=== PATIENT | female | born 1960 | race Caucasian/White ===

== ENCOUNTER → 2016-10-04 | Day surgery (SDC) | payer BC ==
[~2016-10-04] MED LIST: BUPIVACAINE HCL PF 0.75% 30 ML VIAL ONE; CLINDAMYCIN PHOS 600 MG/4 ML VIAL ONE; LACTATED RINGER'S 1000 ML INJ 1,000 ML ONE; LIDOCAINE 1.5%/EPINEPHrine 1:200,000 PF SOLN 30 ML AMP ONE; LOSA50TA PO; METO50TA PO; MIDAZOLAM HCL 5 MG/ML VIAL (1 ML) ONE; MONT10TA2 PO; PROPOFOL 500 MG/50 ML BTL IV ONE; PROT40TA PO; SODIUM CHLORIDE 0.9% SOLN 100 ML BAG IV ONE
--- NOTE | 2016-10-05 07:05 | MP ---
cc: HECTOR SIMPSON DATE OF SURGERY 10/04/2016 PREOPERATIVE DIAGNOSIS Left shoulder impingement syndrome. POSTOPERATIVE DIAGNOSIS Left shoulder high-grade (80%) partial-thickness rotator cuff tear of the supraspinatus tendon, impingement, SURGEON Hector Simpson MD DEPUTY DIRECTOR OF PUBLIC WORKS JASON Santos The surgical procedure was assisted by my Advanced Registered Nurse Practitioner. My WATER METER INSTALLER presence was necessary throughout this case for the manipulation and positioning of the surgical extremity. My WATER METER INSTALLER was assisting me throughout the duration of this procedure. The skill set of an Advance Registered Nurse Practitioner was medically necessary to complete this procedure. During the surgical case, the surgical first assistant was working at the back table and the Advance Registered Nurse Practitioner was directly assisting me. PROCEDURE Left shoulder arthroscopic subacromial decompression and pressure acromioplasty with arthroscopic rotator cuff repair. ANESTHESIA Interscalene block and general PROCEDURE The patient received regional anesthesia. The patient was brought back to the operative theater. General anesthesia was administered. She was placed into a lateral decubitus position with an axillary roll and a well-padded down leg. She received intravenous clindamycin. The left upper was placed into 10 pounds of in-line traction and then prepped and draped in the usual sterile fashion. We started with a standard posterior portal for the diagnostic arthroscopy. The glenohumeral joint in general was intact without significant general changes, although we did find one small area of focal chondromalacia by the superior anterior aspect which was grade 2 in nature and very rounded and appeared to be chronic with no unstable edges. This happened to be right next to a partial thickness rotator cuff tear that we identified with a flap of the undersurface rotator cuff which was a very unstable. We found no loose bodies in the axillary pouch. The subscapularis tendon was intact. The biceps tendon was intact although there was quite a bit of synovitis around the superior labrum. There was a little bit of fraying of the superior labrum and the posterior superior labrum which we did debride with an oscillating shaver. There was no instability of the biceps tendon attachment site itself. We turned our attention back to the rotator cuff. We debrided this and the tearing encompassed about 50% of the width of the supraspinatus tendon. It was essentially going from just about the anterior interval region posterior and then at least from the undersurface there appeared to be at least 50% of the rotator cuff that was part of this tear which we then debrided with the oscillating shaver and we also debrided the insertion site as well. We marked this area with a Prolene stitch and then we placed the arthroscope into the subacromial space. We found quite a bit of bursitis which was resected. A very small acromial spur which was resected. This was done with an oscillating and forward shaver. We identified the Prolene and then probed the cuff. We found that there was about a 30% bursal side tear exactly in the same spot that the undersurface tear was located. We debrided this. Ultimately, there was about an 80% thickness tear to the supraspinatus tendon anteriorly. We completed the tear using an oscillating shaver, prepared the greater tuberosity and then we repaired the cuff using an [employer] Bio[employer] swivel lock medially which had a fiber tape associated with it. We threw each end of the fiber tape to make a horizontal mattress and then laid these sutures down laterally to another Bio[employer]posite swivel lock which repaired the tear very nicely. The portals were closed 2-0 Vicryl followed by 3-0 nylon. The arm was dressed and then placed into a sling and swath. Postop plan is a standard rotator cuff repair protocol. MD MARIA TERESA Stark/SINGH /3:28 PM /6:55 AM
== END | disposition home or self-care (01) ==
LOC: ESDC 12:47
PROVIDERS: ATTEND Orthopaedic Surgery
DX: M75.112 Incomplete rotator cuff tear or rupture of left shoulder, not specified as traumatic (principal); M75.42 Impingement syndrome of left shoulder
CPT/HCPCS: 01630; 01991; 29826; 29827; 64417; C1713; J2250; J7120

== ENCOUNTER → 2017-04-25 | Day surgery (SDC) | payer BC ==
[~2017-04-25] MED LIST changes: +ACETAMINOPHEN/HYDROcodone 325 MG/5 MG TAB ONE; +BUPIVACAINE HCL PF 0.5% 10 ML VIAL ONE; +BUPIVACAINE HCL PF 0.5% 30 ML VIAL ONE; +EPINEPHrine HCL (1:1000) 30 MG/30 ML VIAL OTHER ONE; +KETOROLAC TROMETHAMINE 30 MG/ML (IVP) VIAL IV PUSH ONE; +LIDOCAINE 1%/EPINEPHrine 1:100,000 SOLN 20 ML VIAL ONE; +MEPERIDINE HCL 25 MG/ML VIAL ONE; +MIDAZOLAM HCL 2 MG/2 ML VIAL ONE; +MORPHINE SULFATE 4 MG/ML INJ ONE; +ONDANSETRON HCL 4 MG/2 ML VIAL IV PUSH ONE; +PROPOFOL 200 MG/20 ML AMP IV ONE; -PROPOFOL 500 MG/50 ML BTL IV ONE; +SODIUM CHLOR 0.9% 250 ML INJ 250 ML IV ONE; +SODIUM CHLORIDE 0.9% INJ 100 ML IV ONE; -SODIUM CHLORIDE 0.9% SOLN 100 ML BAG IV ONE; +TRIAMCINOLONE ACETONIDE 40 MG/ML VIAL ONE; +VANCOMYCIN HCL 1000 MG VIAL ONE
--- NOTE | 2017-04-25 21:12 | MP ---
cc: MIRANDA SIMPSON DATE OF SURGERY: 04/25/2017 PREOPERATIVE DIAGNOSIS: Right knee synovitis and arthrofibrosis, status post total knee arthroplasty. POSTOPERATIVE DIAGNOSIS: Right knee synovitis and arthrofibrosis, status post total knee arthroplasty. SURGEON: Dr. Cyndy Simpson. PROCEDURE: Right knee arthroscopic extensive synovectomy/lysis of adhesions, of all three compartments, status post total knee arthroplasty. ESTIMATED BLOOD LOSS: Minimal ANESTHESIA: General anesthesia. PROCEDURE The patient was brought back to the operative theater. She received intravenous clindamycin and vancomycin. General anesthesia was administered. The right lower extremity was prepped and draped in usual sterile fashion. We started with a standard inferolateral portal followed by inferomedial portal under spinal needle visualization. We found no significant effusion in the knee. There was very significant adhesions in the front of the knee and we had to take particularly extra time in order to visualize the instruments in the front of the knee and slowly start with our debridement removing the significant scar tissue anteriorly. We used a combination of shaver also with an ArthroCare wand as well. Once we debrided anteriorly we did find that there is significant subluxation of the scar tissue and synovium into both the medial and lateral compartments of the knee. This was resected in its entirety. The visualized portion of the prosthesis including the vast majority of the femoral condyle and also most of the polyethylene appeared to be intact with no obvious early carson characteristics. No gross catastrophic failure noted. Small scuffs were noted on the metal of the distal femur but nothing that overly looked as a failure or any kind of deep cracks or fissures. We then made a way around the compartments into the medial and lateral gutter resecting significant scar tissue and forming synovectomy. We then got up into the suprapatellar pouch, found that there was significant scar tissue holding the undersurface of the quadriceps adhered to the suprapatellar pouch, resected all the scar tissue in that region. We then also resected adhesions that were noted underneath the patella. We were then able to visualize the patella button, and visualized portion of the patella button was unremarkable. Once we completed this we then released the leg out of the leg felder then performed a manipulation. After manipulation we were able to achieve flexion of 130 degrees before this. The flexion was about 60 degrees. We had typical tearing of some adhesions that had been remaining when we performed the rest of the manipulation, although breaking through these adhesions were relatively easy since we just completed the arthroscopy. On the interarticular we gave injection of Marcaine and epinephrine along with 40 milligrams of Kenalog. The portals were closed with 2-0 Vicryl followed by 3-0 nylon. The leg was dressed. The postoperative plan is to initiate aggressive early range of motion and she is weightbear as tolerated. Miranda Simpson MD /MARILIN /2:45 PM /9:01 PM
== END | disposition home or self-care (01) ==
LOC: ESDC 12:26
PROVIDERS: ATTEND Orthopaedic Surgery
DX: M65.9 Synovitis and tenosynovitis, unspecified (principal); M24.661 Ankylosis, right knee; Z96.651 Presence of right artificial knee joint
CPT/HCPCS: 01400; 29876; J0171; J1885; J2175; J2250; J2270; J2405; J3010; J3301; J3370; J7050; J7120